=== PATIENT | female | born 1985 ===

== ENCOUNTER 2020-07-17 05:45 | Day surgery (SDC) | payer OTHER | END 2020-07-17 11:00 | disposition home or self-care (01) | LOC: AMB-ENDOS 05:45 | PROVIDERS: ATTEND Surgery | DX: K62.89 Other specified diseases of anus and rectum (principal); K44.9 Diaphragmatic hernia without obstruction or gangrene; K29.60 Other gastritis without bleeding; Z20.828 Contact with and (suspected) exposure to other viral communicable diseases ==

== ENCOUNTER 2024-06-25 11:23 | Outpatient (CLI) | payer OTHER | END 2024-06-25 11:25 | disposition home or self-care (01) | LOC: SONOGRAMA 11:23 | PROVIDERS: ATTEND Pathology Anatomic Pathology & Clinical Pathology | DX: R59.0 Localized enlarged lymph nodes (principal); R22.1 Localized swelling, mass and lump, neck ==

== ENCOUNTER 2025-01-28 09:45 | Inpatient (IN) | payer OTHER ==
[~2025-01-28] VITALS: Ht 175.3 cm; Wt 123.8 kg
[2025-01-28] MEDS ORDERED: SIMVASTATIN5 MG (11:49)
[2025-01-28] MEDS ORDERED: METHIMAZOLE10 MG (11:50)
[2025-01-28] MEDS ORDERED: VITAMIN D (11:50)
[2025-01-28 11:53] VITALS: BP 111/74
[2025-01-28 12:01] LABS: BASO % 0.5 % (0.1-1.2); EOS # 0.37 (0.04-0.54); EOS % 4.9 % (0.7-7.0); HEMATOCRIT 34.4 % (34.1-44.9); HEMOGLOBIN 11.1 g/dL (11.2-15.7); LYMPH # 2.71 (1.18-3.74); LYMPH % 35.9 % (19.3-53.1); MEAN CORPUSCULAR HEMOGLOBIN 27.1 pg (25.6-32.2); MONO # 0.49 (0.24-0.82); MONO % 6.5 % (4.7-12.5); NEUT % 51.8 % (34.0-71.1); PLATELET COUNT 334 K/uL (163-369); RED BLOOD COUNT 4.09 M/uL (3.93-5.22); RED CELL DISTRIBUTION WIDTH 14.4 % (11.6-14.4)
[2025-01-28 12:29] LABS: INR 0.97; PARTIAL THROMBOPLASTIN TIME 29.1 SECONDS (22.0-34.0); PROTHROMBIN TIME 10.6 SECONDS (9.0-11.5)
[2025-01-28 12:54] LABS: PH,URINE 5.5 (5.0-8.0); URINE APPEARANCE Clear; URINE BILIRRUBIN Negative (NEGATIVE); URINE BLOOD Negative; URINE COLOR Yellow; URINE GLUCOSE Negative (NEGATIVE); URINE KETONE Negative (NEGATIVE); URINE LEUKOCYTE Trace; URINE NITRATE Negative; URINE PROTEIN Negative (NEGATIVE); URINE UROBILINOGEN 0.2 E.U./dl
[2025-01-28 12:59] LABS: URINE BACTERIA 2685.3 uL (0.0-1933); URINE EPITHELIAL CELLS 51.2 uL (0.0-38.8); URINE RBC 6.1 uL (0.0-20.8); URINE WBC 23.9 uL (0.0-23.2)
[2025-01-28 13:01] LABS: URINE CAST 0.14 uL (0.0-1.40)
[2025-01-28 13:31] LABS: ALBUMIN 3.8 gm/dL (3.4-5.0); BILIRUBIN TOTAL 0.45 mg/dL (0.3-1.2); CALCIUM 8.5 mg/dL (8.5-10.1); CREATININE SERUM 0.67 mg/dL (0.55-1.02); GFR 96.99; GLOBULINA 3.6 G/DL (2.4-3.5); POTASSIUM 4.16 mEq/L (3.5-5.1); TOTAL PROTEIN 7.4 gm/dL (6.4-8.2)
[2025-02-04] MEDS ORDERED: DEXAMETHASONE SODIUM PHOSPHATE 4 MG/ML VIAL IV ONE (09:45)
[2025-02-04] MEDS ORDERED: ENALAPRILAT DIHYDRATE 1.25 MG/ML VIAL IV PRN (11:45)
[2025-02-04] MEDS ORDERED: ONDANSETRON HCL 2 MG/ML VIAL IV PRN (11:45)
[2025-02-04] MEDS ORDERED: MORPHINE SULFATE 4 MG/ML VIAL IV ONE (13:55)
[2025-02-04] MEDS ORDERED: ACETAMINOPHEN 500 MG GEL..CAP PO SCH (17:00)
[2025-02-04] MEDS ORDERED: TRAMADOL HCL 50 MG TABLET PO SCH (17:00)
[2025-02-04] MEDS ORDERED: CYCLOBENZAPRINE HCL 5 MG TABLET PO SCH (17:00)
[2025-02-04] MEDS ORDERED: DIPHENHYDRAMINE HCL 75 MG,LIDOCAINE HCL 30 ML,MAG HYDROX/ALUMINUM HYD/SIMETH 30 ML PO SCH (17:00)
[2025-02-04] MEDS ORDERED: GABAPENTIN 100 MG CAPSULE PO SCH (17:00)
[2025-02-04] MEDS ORDERED: GABAPENTIN 100 MG CAPSULE PO ONE (17:50)
[2025-02-04] MEDS ORDERED: ACETAMINOPHEN 500 MG GEL..CAP PO ONE (17:50)
[2025-02-04 18:40] VITALS: BP 134/62; O2SAT 99
[2025-02-04] MEDS ORDERED: PANTOPRAZOLE SODIUM 40 MG/VIAL VIAL IV PUSH SCH (21:00)
[2025-02-04] MEDS ORDERED: Calcium Carbonate 1 TAB TABLET PO SCH (21:00)
[2025-02-05 00:54] VITALS: BP 118/64; O2SAT 95
[2025-02-05] MEDS ORDERED: LEVOTHYROXINE SODIUM 175 MCG TABLET PO SCH ×2 (06:00→09:00)
[2025-02-05] MEDS ORDERED: MAG HYDROX/ALUMINUM HYD/SIMETH 30 ML BLIST.PACK PO ONE (06:21)
[2025-02-05] MEDS ORDERED: DIPHENHYDRAMINE HCL 12.5 MG/5 ML BLIST.PACK PO ONE (06:21)
[2025-02-05 08:00] VITALS: BP 96/61; O2SAT 95
[2025-02-05] MEDS ORDERED: SIMVASTATIN 10 MG TABLET PO SCH (09:00)
[2025-02-06] MEDS ORDERED: LEVOTHYROXINE SODIUM 175 MCG TABLET PO SCH (06:00)
== END 2025-02-05 14:12 | disposition home or self-care (01) | DRG 627 ==
LOC: SURG 02-04 07:56 → O/R 02-04 07:56 → SURH 02-04 09:45 → SURG 02-04 13:19
PROVIDERS: ADMIT Surgery; ATTEND Surgery
PROC: 0GTK0ZZ Resection of Thyroid Gland, Open Approach (ICD-10-PCS; principal; 2025-02-04 12:15)
DX: E05.00 Thyrotoxicosis with diffuse goiter without thyrotoxic crisis or storm (principal)